=== PATIENT | male | born 1975 | race Caucasian/White ===

== ENCOUNTER 2018-12-24 12:22 | Inpatient (IN) ==
--- NOTE | 2018-12-24 12:40 | PROVIDER DOCUMENTATION ---
HPI-General Adult - General Chief Complaint: B/P Problems Stated Complaint: BP HIGH Time Seen by Provider: 12/24/18 12:39 Source: patient Allergies/Adverse Reactions: Patient Allergies Allergy/AdvReac Type Severity Reaction Status Date / Time No Known Allergies Allergy Verified 12/24/18 12:35 - History of Present Illness -Gen Adult Nature of Presenting Problems: 43 yr old M, PMHx significant for HTN, presents from PCP's office after physical examination revealed elevated BP with systolic of 280. The patient denies chest pain, changes in vision, nausea, vomiting, dizziness, headache. Review of Systems - Adult - REVIEW OF SYSTEMS - ADULT Constitutional: reports: no symptoms reported Eyes: reports: no symptoms reported Ears, Nose, Mouth & Throat: reports: no symptoms reported Cardiovascular: reports: no symptoms reported Respiratory: reports: no symptoms reported Gastrointestinal: reports: no symptoms reported Genitourinary: reports: no symptoms reported Musculoskeletal: reports: no symptoms reported Neurological: reports: no symptoms reported Psychiatric: reports: no symptoms reported Endocrine: reports: no symptoms reported Past History - Adult - PAST MEDICAL HISTORY-ADULT Review of Records: reports: Nursing Assessment Review Major Childhood Illnesses: reports: denies history Cardiovascular: reports: HTN Respiratory: reports: denies history Gastrointestinal: reports: denies history Obstetrical/Gynecological: reports: denies history. denies: - spont/elective, ectopic , endometriosis, fibroids, ovarian cysts, PID/STD, uterine/ovarian cancer, other Genitourinary: denies: denies history, cancer, dialysis, ESRD, incontinence, kidney disease, kidney stones, polycystic kidney disease, retention, stenosis/obstruction, chronic UTI's, erectile dysfunction, epididymitis, prostatitis, prostate cancer, STD (male), testicular injury, other Neurological: reports: denies history Endocrine/Immune: reports: denies history - PRIOR SURGERIES/PROCEDURES Surgical/Procedure History: reports: reviewed, not pertinent - FAMILY HISTORY Family History: HTN - SOCIAL HISTORY Smoking: cigar Alcohol Use Frequency: 3-4 times a week Physical Exam-General - PHYSICAL EXAM-ADULT Initial Vital Signs Reviewed: Yes - CONSTITUTIONAL General Appearance: appears well, alert, no apparent distress - EYES Eyes: PERRL/EOMI - HEAD, EARS, NOSE, MOUTH & THROAT HENMT: normocephalic/atraumatic - NECK Neck: non-tender - RESPIRATORY Respiratory: lungs clear, normal breath sounds - CARDIOVASCULAR Cardiovascular: regular rate, rhythm, systolic murmur - GASTROINTESTINAL (ABDOMEN) Abdominal Exam: non tender - MUSCULOSKELETAL Extremity: no pedal edema - NEUROLOGIC Neurologic: grossly normal Progress - PLAN OF CARE/RESULTS Progress/Plan/Lab Results: Vital Signs - 8 hr 12/24/18 12:33 Temperature 97.8 F Pulse Rate 80 Respiratory Rate 16 Blood Pressure 247/143 O2 Sat by Pulse Oximetry 99 BP 181/114 at 5:30PM, after admin of labetalol (total of 20 mg), hydralazine 25 mg PO, amlodipine 10 mg PO. Pt continues to deny chest pain, dizziness, SOB, n/v. Result Diagrams: 12/24/18 13:19 12/24/18 13:19 - EKG 1 Time of EKG reading by physician:: 13:25 EKG Read and Signed by:: Anthony Spicer EKG Interpretation (*Must complete 3 of following elements*): Abnormal Rate: 70 Rhythm: sinus QRS: LVH ST Wave: non-specific ST changes 2 Time of EKG reading by physician:: 17:58 EKG Read and Signed by:: Anthony Spicer EKG Interpretation (*Must complete 3 of following elements*): Abnormal Rate: 86 Rhythm: sinus QRS: normal, LVH ST Wave: non-specific ST changes Prior EKG Comparison: unchanged from prior - XRAY 1 XRAY Study: Chest Impression: Normal - CONSULTS/PCP/HOSPITALIST Notification #1 *Consult/PCP/Hospitalist*: Dr. Maria/Nila Time Discussed: 17:50 Reason/Comments: pt not responding to iv bp meds;will discuss with hospitalist and call back Consult Disposition: Admit (hospitalist seen in room evaluating pt; [facility] informed fellow that hospitalist would accept pt), other Departure - Departure Date of Disposition Decision: 12/24/18 Time of Disposition Decision: 18:52 DIAGNOSIS: Hypertensive urgency Disposition: ADMITTED INPATIENT 09 Certified Medical Emergency: Emergent Condition: Fair Referrals and Follow-Ups: None,PCP [Primary Care Provider] - - Critical Care Note This patient required my direct & personal management of CC.: Yes Attestation - Physician/ INGR[facility] Attestation Patient care was provided by Advanced Practice Provider:: No The physician spent face to face time with patient:: Yes Advanced Practice Provider documentation review:: Supervising physician onsite and consulted in the evaluation and care of this patient. The physician did have a face to face encounter with the patient.
[2018-12-24] MEDS ORDERED: APRESOLINE PO ONE (12:59)
[2018-12-24] MEDS ORDERED: NORVASC PO ONE (12:59)
--- NOTE | 2018-12-24 13:24 | EKG Report ---
Test Performed on : 12/24/2018 1:17:44 PM Test Reason : CP Blood Pressure : / mmHG Vent. Rate : 070 BPM Atrial Rate : 070 BPM P-R Int : 204 ms QRS Dur : 086 ms QT Int : 402 ms P-R-T Axes : 032 -06 019 degrees QTc Int : 434 ms Normal sinus rhythm. Voltage criteria for left ventricular hypertrophy Nonspecific ST and T wave abnormality Abnormal ECG No previous ECGs available Unconfirmed Result
--- NOTE | 2018-12-24 13:28 | Diag Imaging Result Doc PS360 ---
EXAM: CHEST-1 VIEW 12/24/2018 HISTORY: hypertensive urgency TECHNIQUE: AP portable erect at 1309 COMMENT: There is no evidence of acute cardiac or pulmonary disease and no previous studies are available for comparison. IMPRESSION: No acute abnormality. Electronically signed by Ajith Villa 12/24/2018 1:25 PM
[2018-12-24] MEDS ORDERED: LABETALOL IV ONE ×2 (13:39→15:58)
[2018-12-24 13:59] LABS: BASO# 0.03 X1000 (0.0-0.2); BASO% 0.4 % (0.0-0.8); EOS# 0.27 X1000 (0.0-0.7); HEMATOCRIT 38.3 % (42.0-52.0); HEMOGLOBIN 13.4 g/dL (14.0-18.0); LYMPH% 31.3 % (20.5-51.1); MCH 31.6 PG (27-31); MCV 90.3 FL (81-99); MONO# 0.57 X1000 (0.11-0.59); MONO% 8.5 % (1.7-9.3); MPV 10.7 FL (7.4-10.4); NEUT# 3.73 X1000 (1.4-6.5); NEUT% 55.8 % (42.2-75.2); PLT 175 X1000 (130-400); RBC 4.24 XMIL (4.7-6.1); RDW 13.3 % (11.5-14.5)
[2018-12-24 14:34] LABS: ALB/GLOB RATIO 1.6; ALBUMIN 4.5 g/dL (3.5-5.0); CREATININE 1.7 mg/dL (0.7-1.2); POTASSIUM 3.9 mmol/L (3.5-5.1); TOTAL BILIRUBIN 0.49 mg/dL (0.20-1.00); TOTAL PROTEIN 7.4 g/dL (6.3-8.3)
[2018-12-24 15:34] LABS: URINE SOURCE CLEAN CATCH
[2018-12-24 15:47] LABS: BILIRUBIN URINE NEGATIVE (NEGATIVE); BLOOD URINE TRACE (NEGATIVE); COLOR YELLOW; GLUCOSE URINE NEGATIVE (NEGATIVE); KETONE URINE NEGATIVE (NEGATIVE); LEUKOCYTES URINE NEGATIVE (NEGATIVE); NITRITE URINE NEGATIVE (NEGATIVE); PROTEIN URINE TRACE mg/dL (NEGATIVE); SP GRAVITY URINE 1.024; TURBIDITY URINE CLEAR (CLEAR); UROBILINOGEN URINE NORMAL (NORMAL)
[2018-12-24 15:48] LABS: UR EPITHELIAL CELLS <10 /HPF (<10); URINE BACTERIA NEGATIVE /HPF; URINE RBC <10 /HPF (<10); URINE WBC <10 /HPF (<10)
[2018-12-24] MEDS ORDERED: APRESOLINE IV ONE (16:24)
--- NOTE | 2018-12-24 17:56 | EKG Report ---
Test Performed on : 12/24/2018 5:51:21 PM Test Reason : CP Blood Pressure : / mmHG Vent. Rate : 086 BPM Atrial Rate : 086 BPM P-R Int : 198 ms QRS Dur : 088 ms QT Int : 380 ms P-R-T Axes : 048 000 035 degrees QTc Int : 454 ms Normal sinus rhythm. Possible Left atrial enlargement Left ventricular hypertrophy Nonspecific ST and T wave abnormality Abnormal ECG When compared with ECG of 24-DEC-2018 13:17, (Unconfirmed) No significant change was found Unconfirmed Result
[2018-12-24] MEDS ORDERED: LABETALOL IV PRN (18:22)
[2018-12-24] MEDS ORDERED: APRESOLINE IV PRN (18:23)
--- NOTE | 2018-12-24 19:01 | HISTORY AND PHYSICAL ---
CHIEF COMPLAIN: Hypertension with systolic blood pressure more than 240 mmHg on arrival. HISTORY OF PRESENT ILLNESS: Mr. Linares is 43 years old man with past medical history of essential hypertension diagnosed when he was around 23 years old but has not been taking any medicines since about 20 years because of financial issues was sent to emergency room from the provider's office where he went for routine physical examination. In the emergency room he was found to have initial systolic blood pressure of 240/140. He was given an oral hydralazine, oral amlodipine, intravenous hydralazine and intravenous labetalol following which his blood pressure decreased to 190 systolic and then hospitalist team were consulted for further management. SUBJECTIVE: At the time of my evaluation patient denies any chest pain, shortness of breath, palpitation, epigastric tenderness, nausea, vomiting or abdominal pain. He denies any burning during micturition or diarrhea or constipation. His appetite is good. He is complaining of some occipital mild headache. He states he has not been taking any antihypertensive medication for 20 years because of financial issues otherwise he is asymptomatic. REVIEW OF SYSTEMS: Positive for mild headache. Negative for blurring of vision, negative for nausea, vomiting, negative for burning micturition, negative for hematuria . PAST MEDICAL HISTORY: Essential hypertension but has not been taking any medication. HOME MEDICATIONS: None. PAST SURGICAL HISTORY: None . FAMILY HISTORY: Mother had hypertension and myocardial infarction, grandparents had diabetes mellitus. SOCIAL HISTORY: He smokes about 10 cigars per month. I counseled him about quitting in the form of tobacco. Occasional alcohol drinker for 1 every 2 to 3 weeks. Denies any recreational substances use ever. VITALS: Currently temperature of 97.8 degrees, pulse 80, respiratory rate 14, blood pressure 190/115, saturating 100% room air. PHYSICAL EXAMINATION: GENERAL: Does not appear in any acute distress. Oral cavity is moist. Air entry bilaterally equal. No wheeze, rhonchi, crackles. S1 is normal, S2 is prominent. No murmur, rub, or gallop. ABDOMEN: Soft, nontender. Active bowel sounds. No hepatosplenomegaly. No lower extremity edema. He is alert, oriented x3. His sensations are intact bilateral upper and lower extremities. He does not have facial asymmetry or speech abnormality. His pupils are bilaterally equal reacting to light. LABS: Suggestive of hemoglobin of 13.4, he does have a creatinine of 1.7. Unclear about his chronicity. Troponins is less than 0.010, urinalysis have trace blood without any RBCs. No new microbiological data. IMAGING: Chest x-ray does not suggest any acute abnormalities. EKG had left ventricular hypertrophy. ASSESSMENT AND PLAN: 1. Hypertensive emergency. 2. Kidney dysfunction of unclear chronicity. 3. Noncompliance with medication due to financial issues. Plan. I will admit the patient to ICU for overnight monitoring of his blood pressure with goal of systolic blood pressure 170 to systolic blood pressure goal of 170 to 180 over 24 hours. I will start him on intravenous hydralazine and intravenous labetalol as needed. I will also start him on oral amlodipine and carvedilol. I will follow up with echocardiogram considering his left ventricular hypertrophy for further evaluation of ventricular function . 4. Kidney dysfunction. I will start him on intravenous fluid resuscitation. The chronicity of this is unclear. Based on that, he may become candidate for diuretic or KAELYN inhibitor for his hypertension management. 5. Others. I will also follow up with lipid panel, hemoglobin A1c. Plan of care discussed with patient and his mother at bedside. Their questions have been satisfactorily answered. cc: Julien Maria MD
[2018-12-24] MEDS: COREG PO SCH (20:08)
[2018-12-24] MEDS: LR 1,000 ML IV SCH (20:34)
[2018-12-24] MEDS ORDERED: TYLENOL PO PRN (22:19)
[2018-12-25] MEDS: LR 1,000 ML IV SCH (05:53)
[2018-12-25] MEDS: COREG PO SCH (05:53)
[2018-12-25 06:27] LABS: CALCIUM 9.1 mg/dL (8.8-10.2); CREATININE 1.4 mg/dL (0.7-1.2); MAGNESIUM 2.2 mg/dL (1.5-2.7); POTASSIUM 3.9 mmol/L (3.5-5.1)
[2018-12-25 07:07] LABS: CHOLESTEROL 243 mg/dL (0-200); HDL 44 mg/dL (35-55); LDL 183 mg/dL; TRIGLYCERIDES 78 mg/dL (39-160); VLDL 16 mg/dL
[2018-12-25 07:47] LABS: BASO# 0.02 X1000 (0.0-0.2); BASO% 0.2 % (0.0-0.8); EOS# 0.12 X1000 (0.0-0.7); EOS% 1.4 % (0.0-10.0); HEMATOCRIT 40.1 % (42.0-52.0); HEMOGLOBIN 14.2 g/dL (14.0-18.0); IMM GRAN# 0.02 X1000 (0.0-0.04); IMM GRAN% 0.2 % (0.0-0.5); LYMPH# 1.58 X1000 (1.2-3.4); LYMPH% 18.2 % (20.5-51.1); MCH 31.7 PG (27-31); MCHC 35.4 g/dL (33-37); MCV 89.5 FL (81-99); MONO# 0.78 X1000 (0.11-0.59); MPV 11.1 FL (7.4-10.4); NEUT# 6.15 X1000 (1.4-6.5); PLT 219 X1000 (130-400); RBC 4.48 XMIL (4.7-6.1); RDW 13.6 % (11.5-14.5); WBC 8.67 X1000 (4.8-10.8)
[2018-12-25] MEDS ORDERED: NORVASC PO SCH (09:00)
[2018-12-25 11:56] VITALS: BP 140/98
--- NOTE | 2018-12-25 12:24 | DISCHARGE SUMMARY ---
ADMISSION DATE: 12/24/2018 DISCHARGE DATE: 12/25/2018 DISPOSITION: Home. FOLLOW-UP: Will be with patient's PCP. CONSULTATION DURING THIS ADMISSION: None. IMAGING STUDIES OF SIGNIFICANCE: A chest x-ray showed no acute abnormality. EKG showed normal sinus rhythm with electrical voltage criteria for left ventricle hypertrophy. ADMISSION DIAGNOSES: 1. Hypertensive emergency. 2. Acute kidney injury. 3. Medication noncompliance. DIAGNOSES AT THE TIME OF DISCHARGE: 1. Hypertensive urgency/emergency on presentation, resolved. 2. Medication noncompliance. 3. Acute kidney injury, improved. 4. Overweight with BMI of 29.7. 5. Metabolic syndrome. 6. Mild clinical volume depletion, improved. DISCHARGE MEDICATIONS: 1. Chlorthalidone 25 mg p.o. daily. 2. Carvedilol 6.25 p.o. q. 12 hourly. 3. Amlodipine 10 mg p.o. daily. PRESENTING COMPLAINT: Hypertension. HISTORY OF PRESENT COMPLAINT: Mr. Linares is a 43-year-old gentleman with history of hypertension for the past 20 years, who has not been compliant with medication. The patient refers that he just went for Medical at his workplace and was found to have a systolic blood pressure of over 200, so he was advised to come to the emergency room. In the ER, his initial vitals revealed a blood pressure of 240/114. He was subsequently admitted to the ICU for close monitoring and management. HOSPITAL COURSE: Mr. Linares was started on oral medication and was also gently hydrated overnight. This morning, he refers to feel a whole lot better. He denies any complaints. His current vitals, blood pressure is 148/104. His physical exam is completely normal except for a more pronounced A2 sound. We have optimized his current medications and he has been advised on tobacco cessation, low-salt diet, and regular exercise to help with high blood pressure management. Mr. Linares has also been advised on medication compliance and 3 times reading of his blood pressure at home. He has been given a list of primary care doctors that he can follow up with and he has been given medication, at least 3 months' supply. Mr. Linares is being discharged in stable condition. As I said, he is completely asymptomatic. All the discharge instructions have been discussed with him and he voiced understanding. Time spent for discharge is 35 minutes. cc: Adrian Armijo MD
--- NOTE | 2018-12-25 14:19 | ECHO REPORT ---
ORDER DATE: 12/24/2018 ECHOCARDIOGRAPHIC MEASUREMENTS: 1. Interventricular septum 1.8. 2. Left ventricular posterior wall 1.7. 3. Diastolic diameter 4.3. 4. Left atrium 3.4. 5. Left atrial end systolic index of 36.67. 6. Aorta 3.4. SUMMARY: 1. Normal left ventricular cavity size. 2. Severe left ventricular hypertrophy concentric with granular pattern noted in the interventricular septum. Cannot rule out infiltrative disorder with an estimated ejection fraction of 65 to 70 percent. There is associated mild diastolic dysfunction. 3. Left atrium was enlarged. 4. Aortic valve leaflets are trileaflet. 5. Mitral valve was normal. 6. Tricuspid valve was normal. 7. Pulmonic valve was normal. 8. There is no aortic stenosis. 9. There is trivial aortic regurgitation. 10. There is mild mitral regurgitation. 11. Mild pulmonary regurgitation. 12. Mild tricuspid regurgitation. 13. Peak velocity across the tricuspid valve less than 2 m/sec. 14. There is no pericardial effusion or obvious intracardiac mass or thrombus. cc: MD Julien Montiel MD
[2018-12-26] MEDS ORDERED: NORVASC PO SCH (09:00)
== END 2018-12-25 12:00 | disposition home or self-care (01) | DRG 305 ==
LOC: ED 12:22 → ICU 19:42 → SUATTDRO 19:42
PROVIDERS: ATTEND Internal Medicine